=== PATIENT | male | born 2000 | race Hispanic/Latino ===

== ENCOUNTER 2024-12-14 07:42 | Emergency (ER) | payer SELFPAY ==
[2024-12-14] MEDS ORDERED: Boostrix 0.5 ML (Tdap) VIAL (>/=7 yrs of age) ONE ×2 (08:08→08:17)
[2024-12-14] MEDS ORDERED: Acetaminophen 500 MG TAB ONE (08:08)
[2024-12-14] MEDS ORDERED: Lidocaine 1% w/Epinephrine 1:100K 20 ML VIAL ONE (08:08)
[2024-12-14] MEDS ORDERED: Bacitracin 1 PK ONE (08:08)
== END 2024-12-14 11:10 | disposition home or self-care (01) ==
LOC: MADERS 07:42
DX: S01.01XA Laceration without foreign body of scalp, initial encounter (principal); Z23 Encounter for immunization; V89.2XXA Person injured in unspecified motor-vehicle accident, traffic, initial encounter; Y92.410 Unspecified street and highway as the place of occurrence of the external cause
CPT/HCPCS: 12001; 70450; 72125; 90471; 90715